=== PATIENT | female | born 1975 | race Hispanic/Latino ===

== ENCOUNTER 2021-11-29 19:30 | Emergency (ER) | payer SELFPAY ==
[~2021-11-29] VITALS: Ht 162.6 cm; Wt 59.0 kg
[2021-11-29] MEDS ORDERED: ONDANSETRON HCL INJ 2MG/ML 2ML 2 MG/ML VIAL IV STA (19:39)
[2021-11-29] MEDS ORDERED: LACTATED RINGER'S 1,000 ML INJ STA (19:39)
[2021-11-29] MEDS ORDERED: IBUPROFEN 600 MG TAB PO STA (19:39)
[2021-11-29 20:10] LABS: BASOPHILS % 0.2 % (0.0-1.0); EOSINOPHILS % 0.2 % (0.0-6.0); HEMATOCRIT 36.8 % (34.2-44.1); HEMOGLOBIN 12.4 g/dL (12.0-16.0); LYMPHOCYTES # (AUTO) 2.1 (1.0-3.2); LYMPHOCYTES % 8.4 % (18.0-39.1); MEAN CORPUSCULAR HEMOGLOBIN 26.6 pg (28-32); MEAN CORPUSCULAR HGB CONC 33.7 g/dL (31-35); MONOCYTES # (AUTO) 1.1 (0.2-0.8); MONOCYTES % 4.5 % (4.4-11.3); NEUTROPHILS # (AUTO) 21.1 (2.1-6.9); NEUTROPHILS % 85.5 % (38.7-80.0); PLATELET COUNT 465 x10e3/uL (140-360); RED BLOOD COUNT 4.66 x10e6/uL (3.6-5.1)
[2021-11-29 20:29] LABS: CLARITY,URINE CLEAR (CLEAR); COLOR,URINE YELLOW (YELLOW)
[2021-11-29 20:30] LABS: KETONES,URINE NEGATIVE (NEGATIVE); LEUKOCYTE ESTERASE ,URINE NEGATIVE (NEGATIVE); NITRITE,URINE NEGATIVE (NEGATIVE); PROTEIN,URINE DIPSTICK NEGATIVE (NEGATIVE); URINE UROBILINOGEN 0.2 mg/dL (0.2 - 1)
[2021-11-29 20:30] LABS: ALBUMIN 4.2 g/dL (3.5-5.0); ALBUMIN/GLOBULIN RATIO 1.1 (0.8-2.0); ANION GAP 13.9 mmol/L (8-16); CALCIUM 9.7 mg/dL (8.4-10.2); CREATININE, SERUM 0.75 mg/dL (0.57-1.11)
[2021-11-29 20:31] LABS: POTASSIUM 2.9 mmol/L (3.5-5.1)
[2021-11-29 20:50] LABS: BACTERIA,URINE FEW /HPF; EPITHELIAL CELLS,URINE MANY /LPF; RBC,URINE 21-50 /HPF (0-5)
[2021-11-29] MEDS ORDERED: POTASSIUM CHLORIDE 20 MEQ TAB CR PO STA (21:56)
[2021-11-29] MEDS ORDERED: SODIUM CHLORIDE 0.9% 50ML 50 ML ONE (22:40)
[2021-11-29] MEDS ORDERED: IOPAMIDOL 370 MG/ML 200 ML INFUS..BTL INJ ONE (22:41)
[2021-11-29] MEDS ORDERED: PREDNISONE 20 MG TAB PO ONE (23:45)
[2021-11-29] MEDS ORDERED: ALBUTEROL/IPRATROPIUM 3 ML NEB NEB ONE (23:45)
[2021-11-29] MEDS ORDERED: AZITHROMYCIN 250 MG TAB PO ONE (23:45)
[2021-11-30] MEDS ORDERED: PREDNISONE20 MG PO (00:34)
[2021-11-30] MEDS ORDERED: AZITHROMYCIN250 MG PO (00:34)
[2021-11-30] MEDS ORDERED: AUGMENTIN XR 11 EACH PO (00:34)
[2021-11-30 01:11] VITALS: BP 121/81
== END 2021-11-30 01:05 | disposition home or self-care (01) ==
LOC: ER 20:16
DX: R05.9 Cough, unspecified (principal); J18.9 Pneumonia, unspecified organism; J45.909 Unspecified asthma, uncomplicated; Z87.19 Personal history of other diseases of the digestive system; Z20.822 Contact with and (suspected) exposure to COVID-19
CPT/HCPCS: 36415; 71045; 71260; 80053; 81001; 81025; 83605; 85025; 94640; 94799; 99284; J2405; J7121; J7512; Q9967; U0002

== ENCOUNTER 2021-12-06 09:19 | Emergency (ER) | payer SELFPAY ==
[~2021-12-06] VITALS: Ht 162.6 cm; Wt 59.0 kg
[~2021-12-06 09:19] MED LIST: AUGMENTIN XR 11 EACH PO; AZITHROMYCIN250 MG PO; PREDNISONE20 MG PO
[2021-12-06] MEDS ORDERED: PREDNISONE 20 MG TAB PO ONE (09:30)
[2021-12-06] MEDS ORDERED: PREDNISONE 20 MG TAB ONE (09:40)
== END 2021-12-06 11:09 | disposition home or self-care (01) ==
LOC: ER 09:21
DX: R05.9 Cough, unspecified (principal); J40 Bronchitis, not specified as acute or chronic; Z87.19 Personal history of other diseases of the digestive system
CPT/HCPCS: 71046; 99284; J7512

== ENCOUNTER 2025-04-20 10:20 | Emergency (ER) | payer OTHER ==
[~2025-04-20] VITALS: Ht 149.9 cm; Wt 52.2 kg
[2025-04-20 11:32] LABS: BASOPHILS % 0.2 % (0.0-1.0); EOSINOPHILS % 0.0 % (0.0-6.0); LYMPHOCYTES % 31.9 % (18.0-39.1); MONOCYTES % 9.3 % (4.4-11.3); NEUTROPHILS % 58.2 % (38.7-80.0); RED CELL DISTRIBUTION WIDTH 12.7 % (11.7-14.4)
[2025-04-20 11:47] LABS: STREPTOCOCCUS GRP A ANTIGEN NEGATIVE (NEGATIVE)
[2025-04-20 11:54] LABS: CORONAVIRUS COVID-19 AG NEGATIVE (NEGATIVE)
[2025-04-20 12:11] LABS: EST GLOMERULAR FILTRATION RATE 100.0 ML/MIN (>=60)
[2025-04-20] MEDS ORDERED: SODIUM CHLORIDE 0.9% 1000ML 1,000 ML IV STA (12:14)
[2025-04-20] MEDS ORDERED: IOPAMIDOL 370 MG/ML 100 ML INFUS..BTL INJ ONE (12:34)
[2025-04-20 14:55] VITALS: PULSE 81; RESP 13; TEMP 98.5
[2025-04-20] MEDS ORDERED: VENTOLIN HFA18 GM INH (14:57)
[2025-04-20] MEDS ORDERED: AZITHROMYCIN250 MG PO (14:57)
[2025-04-20] MEDS ORDERED: PREDNISONE20 MG PO (14:57)
[2025-04-20 15:13] VITALS: BP 118/73; O2SAT 98
== END 2025-04-20 15:06 | disposition home or self-care (01) ==
LOC: ER 10:32
DX: R06.02 Shortness of breath (principal); R07.89 Other chest pain; J06.9 Acute upper respiratory infection, unspecified; R05.9 Cough, unspecified; R11.2 Nausea with vomiting, unspecified; Z11.52 Encounter for screening for COVID-19; F17.210 Nicotine dependence, cigarettes, uncomplicated
CPT/HCPCS: 0223U; 36415; 71045; 71260; 80053; 82550; 83518 ×2; 83690; 83880; 84484; 85025; 85379; 87070; 87426; 93005; 99284; Q9967